=== PATIENT | female | born 1960 | race Caucasian/White ===

== ENCOUNTER 2018-01-18 11:35 | Observation (INO) | payer BC ==
[2018-01-18] MEDS ORDERED: Promethazine 6.25 MG in Sodium Chloride 0.9% 50 ML IV ONE ×2 (12:37→13:15)
--- NOTE | 2018-01-18 12:44 | EDM.PDOC ---
ED HPI GENERAL MEDICAL PROBLEM - General Chief Complaint: Gastrointestinal Problem Stated Complaint: CAN'T KEEP ANYTHING DOWN/NO WATER (SURG PT) Time Seen by Provider: 01/18/18 12:25 Source of Information: Reports: Patient, Family History Limitations: Reports: No Limitations - History of Present Illness INITIAL COMMENTS - FREE TEXT/NARRATIVE: 57-year-old female status post Zahida-en-Y 2 years ago, also cholecystectomy presents with 7 weeks of recurring persistent nausea and emesis. She has had at least one ER visit for IV fluids and nausea control. She received some Phenergan from her primary doctor which helped and "kept her out of the emergency room" but she has had 2 or 3 exacerbations of the nausea and vomiting , and currently has not eaten or drank anything for "2 days". She tends to be sick for about 7 days in a row. She is having persistent pain in the left upper quadrant of the abdomen, no radiation. No fevers or chills, no shortness of breath or cough, no "flu symptoms". No abdominal distention, no peritoneal irritation. Onset: Unknown/Unsure Duration: Week(s): (Intermittently for several weeks) Location: Reports: Abdomen Severity: Moderate Worsens with: Reports: Eating Associated Symptoms: Reports: Loss of Appetite, Malaise, Nausea/Vomiting, Weakness. Denies: Chest Pain, Cough, Fever/Chills, Headaches Left Upper Abdominal Pain Score (Numeric/FACES): 3 - Related Data Allergies Allergy/AdvReac Type Severity Reaction Status Date / Time amoxicillin trihydrate Allergy Cannot Verified 10/24/15 06:03 [From Augmentin] Remember butorphanol [From Stadol] Allergy Tachycardia Verified 01/18/18 16:38 erythromycin base Allergy Cannot Verified 10/24/15 06:03 Remember hydromorphone Allergy Cannot Verified 10/24/15 06:03 Remember hydromorphone HCl Allergy Cannot Verified 10/24/15 06:03 [From Dilaudid] Remember potassium clavulanate Allergy Cannot Verified 10/24/15 06:03 [From Augmentin] Remember sumatriptan Allergy Cannot Verified 10/24/15 06:03 Remember topiramate [From Topamax] Allergy Cannot Verified 10/24/15 06:03 Remember Home Meds: Home Meds Cholecalciferol (Vitamin D3) [Vitamin D3] 5,000 unit PO DAILY 01/29/15 [History] Estradiol [Climara] 0.05 mg TRDERM WEEKLY 01/29/15 [History] Gabapentin [Neurontin] 300 mg PO BID 01/29/15 [History] Levothyroxine [Synthroid] 100 mcg PO DAILY 01/29/15 [History] Pregabalin [Lyrica] 100 mg PO BEDTIME 01/29/15 [History] cycloSPORINE [Restasis] 1 drop EYEBOTH BID 01/29/15 [History] Escitalopram [Lexapro] 20 mg PO DAILY 01/31/15 [History] Acetaminophen/HYDROcodone [[place] 325-5 MG] 1 - 2 tab PO Q4H PRN #50 tablet 10/25 [Rx] Baclofen [Baclofen] 10 mg PO TID PRN 01/18/18 [History] Past Medical History [employer] History: Reports: Neurological History: Reports: Migraines Psychiatric History: Reports: Depression Endocrine/Metabolic History: Reports: Hypoparathyroidism - Infectious Disease History Infectious Disease History: Reports: Chicken Pox, Measles - Past Surgical History GI Surgical History: Reports: Bariatric Procedure, Cholecystectomy, Hernia Repair/Other Female Surgical History: Reports: Hysterectomy Musculoskeletal Surgical History: Reports: Knee Replacement, Other (See Below) Social & Family History - Tobacco Use Smoking Status *Q: Never Smoker Second Hand Smoke Exposure: No - Caffeine Use Caffeine Use: Reports: Coffee - Alcohol Use Days Per Week of Alcohol Use: 0 - Recreational Drug Use Recreational Drug Use: No ED ROS GENERAL - Review of Systems Review Of Systems: See Below Constitutional: Reports: Malaise, Weakness. Denies: Fever, Chills HEENT: Reports: No Symptoms Respiratory: Denies: Shortness of Breath, Cough Cardiovascular: Denies: Chest Pain Endocrine: Reports: Fatigue GI/Abdominal: Reports: Abdominal Pain, Decreased Appetite, Nausea, Vomiting. Denies: Black Stool, Bloody Stool, Difficulty Swallowing : Reports: No Symptoms Skin: Reports: No Symptoms Neurological: Reports: Weakness. Denies: Confusion, Headache, Difficulty Walking Psychiatric: Reports: No Symptoms ED EXAM, GI/ABD - Physical Exam Exam: See Below Exam Limited By: No Limitations General Appearance: Alert, No Apparent Distress Eyes: Bilateral: Normal Appearance (Normal hydration) Throat/Mouth: Normal Inspection (Normal hydration) Head: Atraumatic Neck: Supple Respiratory/Chest: No Respiratory Distress, Lungs Clear Cardiovascular: Regular Rate, Rhythm, No Murmur GI/Abdominal Exam: Soft, Tender (Some tenderness to the left upper quadrant generally but no guarding or rebound tenderness is present) Extremities: Normal Inspection. No: Pedal Edema Neurological: Alert, Oriented Psychiatric: Flat Affect Skin Exam: Warm, Dry Course - Vital Signs Last Recorded V/S: Last Vital Signs Temp 97.2 F 01/18/18 16:00 Pulse 68 01/18/18 16:00 Resp 16 01/18/18 16:00 BP 124/72 01/18/18 16:00 Pulse Ox 99 01/18/18 16:00 - Orders/Labs/Meds Orders: Active Orders 24 hr Category Date Time Status Iopamidol [Isovue-300 (61%)] Med 01/18/18 13:21 Active 100 ml IV . DIRECTED PRN Sodium Chloride 0.9% [Normal Saline] 100 ml Med 01/18/18 13:30 Active IV ASDIRECTED Medication Orders Acetaminophen (Tylenol) 650 mg PO Q6H PRN PRN Reason: Pain/Fever Last Admin: 01/18/18 16:58 Dose: 650 mg Baclofen (Lioresal) 10 mg PO TID PRN PRN Reason: Pain Cyclosporine (Restasis) 1 each EYEBOTH BID [facility] Escitalopram Oxalate (Lexapro) 20 mg PO DAILY [facility] Gabapentin (Neurontin) 300 mg PO BID [facility] Glycopyrrolate (Glycopyrrolate) 0.4 mg IVPUSH ONETIME ONE Stop: 01/19/18 07:31 Sodium Chloride (Normal Saline) 100 mls @ 3 mls/sec IV ASDIRECTED FLOR Stop: 01/18/18 23:00 Last Admin: 01/18/18 13:41 Dose: 3 mls/sec Dextrose/Lactated Ringer's (Dextrose 5%-Lactated Ringers) 1,000 mls @ 125 mls/ hr IV ASDIRECTED [facility] Multivitamins/Minerals 10 ml/Thiamine HCl 100 mg/ Magnesium Sulfate 2 gm/ Folic Acid 1 mg / Lactated Ringer's 1,015.2 mls @ 501.058 mls/hr IV ONETIME ONE Stop: 01/18/18 19:01 Last Admin: 01/18/18 16:59 Dose: 501.058 mls/hr Iopamidol (Isovue-300 (61%)) 100 ml IV . DIRECTED PRN PRN Reason: RADIOLOGY EXAM Stop: 01/19/18 13:22 Last Admin: 01/18/18 13:41 Dose: 100 ml Levothyroxine Sodium (Synthroid) 100 mcg PO ACBREAKFAST FLOR Ondansetron HCl (Zofran) 4 mg IVPUSH Q6H PRN PRN Reason: Nausea/Vomiting Ondansetron HCl (Zofran Odt) 4 mg PO Q4H PRN PRN Reason: Nausea/Vomiting Pantoprazole Sodium (Protonix Iv) 40 mg IVPUSH DAILY FLOR Climara 0.05mg Patch ((Ptom)) 1 each TOP Q7D FLOR Pregabalin (Lyrica) 100 mg PO BEDTIME FLOR Sodium Chloride (Saline Flush) 10 ml FLUSH ASDIRECTED PRN PRN Reason: Keep Vein Open Labs: Laboratory Tests 01/18/18 01/18/18 Range/Units 12:43 12:43 WBC 5.5 (4.5-11.0) K/uL RBC 4.66 (3.30-5.50) M/uL Hgb 14.7 (12.0-15.0) g/dL Hct 43.6 (36.0-48.0) % MCV 94 (80-98) fL MCH 32 H (27-31) pg MCHC 34 (32-36) % Plt Count 168 (150-400) K/uL Neut % (Auto) 84 H (36-66) % Lymph % (Auto) 9 L (24-44) % [place] % (Auto) 7 H (2-6) % Eos % (Auto) 1 L (2-4) % Baso % (Auto) 0 (0-1) % Sodium 144 (140-148) mmol/L Potassium 3.8 (3.6-5.2) mmol/L Chloride 106 (100-108) mmol/L Carbon Dioxide 24 (21-32) mmol/L Anion Gap 14.4 H (5.0-14.0) mmol/L BUN 8 (7-18) mg/dL Creatinine 0.7 (0.6-1.0) mg/dL Est Cr Clr Drug Dosing 78.83 mL/min Estimated GFR (MDRD) > 60 (>60) Glucose 108 H (74-106) mg/dL Calcium 8.6 (8.5-10.1) mg/dL Total Bilirubin 0.7 D (0.2-1.0) mg/dL AST 21 (15-37) U/L ALT 27 (12-78) U/L Alkaline Phosphatase 119 H (46-116) U/L Total Protein 6.7 (6.4-8.2) g/dL Albumin 3.7 (3.4-5.0) g/dL Globulin 3.0 (2.3-3.5) g/dL Albumin/Globulin Ratio 1.2 (1.2-2.2) Amylase 72 (25-115) U/L Lipase 71 L (73-393) U/L Meds: Medications Generic Name Dose Route Start Last Admin Trade Name Freq PRN Reason Stop Dose Admin Acetaminophen 650 mg 01/18/18 15:41 01/18/18 16:58 Tylenol PO 650 mg Q6H PRN Administration Pain/Fever Baclofen 10 mg 01/18/18 15:49 Lioresal PO TID PRN Pain Cyclosporine 1 each 01/18/18 21:00 Restasis EYEBOTH BID [facility] Escitalopram Oxalate 20 mg 01/19/18 09:00 Lexapro PO DAILY [facility] Gabapentin 300 mg 01/18/18 21:00 Neurontin PO BID [facility] Glycopyrrolate 0.4 mg 01/19/18 07:30 Glycopyrrolate IVPUSH 01/19/18 07:31 ONETIME ONE Sodium Chloride 100 mls @ 3 mls/sec 01/18/18 13:30 01/18/18 13:41 Normal Saline IV 01/18/18 23:00 3 mls/sec ASDIRECTED [facility] Administration Dextrose/Lactated Ringer's 1,000 mls @ 125 mls/hr 01/18/18 15:45 Dextrose 5%-Lactated Ringers IV ASDIRECTED [facility] Multivitamins/Minerals 10 ml/ 1,015.2 mls @ 501.058 mls/hr 01/18/18 17:00 16:59 Thiamine HCl 100 mg/ Magnesium IV 01/18/18 19:01 501.058 mls/hr Sulfate 2 gm/ Folic Acid 1 mg ONETIME ONE Administration / Lactated Ringer's Iopamidol 100 ml 01/18/18 13:21 01/18/18 13:41 Isovue-300 (61%) IV 01/19/18 13:22 100 ml . DIRECTED PRN Administration RADIOLOGY EXAM Levothyroxine Sodium 100 mcg 01/19/18 07:30 Synthroid PO ACBREAKFAST FLOR Ondansetron HCl 4 mg 01/18/18 15:41 Zofran IVPUSH Q6H PRN Nausea/Vomiting Ondansetron HCl 4 mg 01/18/18 15:41 Zofran Odt PO Q4H PRN Nausea/Vomiting Pantoprazole Sodium 40 mg 01/19/18 09:00 Protonix Iv IVPUSH DAILY FLOR Climara 0.05mg Patch 1 each 01/21/18 09:00 (Ptom) TOP Q7D FLOR Pregabalin 100 mg 01/18/18 21:00 Lyrica PO BEDTIME FLOR Sodium Chloride 10 ml 01/18/18 15:41 Saline Flush FLUSH ASDIRECTED PRN Keep Vein Open Discontinued Medications Generic Name Dose Route Start Last Admin Trade Name Freq PRN Reason Stop Dose Admin Promethazine HCl 6.25 mg/ 50.25 mls @ 200 mls/hr 01/18/18 12:37 01/18/18 13: 14 Sodium Chloride IV 01/18/18 12:52 Not Given ONETIME ONE Sodium Chloride 1,000 mls @ 500 mls/hr 01/18/18 12:45 01/18/18 13:03 Normal Saline IV 01/18/18 15:30 500 mls/hr ASDIRECTED FLOR Administration Promethazine HCl 6.25 mg/ 50.25 mls @ 200 mls/hr 01/18/18 13:15 01/18/18 13: 12 Sodium Chloride IV 01/18/18 13:30 200 mls/hr ONETIME ONE Administration - Re-Assessments/Exams Free Text/Narrative Re-Assessment/Exam: 01/18/18 12:43 Patient will be hydrated with normal saline, given 6.25 mg of IV Phenergan and CBC, CMP, amylase, lipase will be obtained. Eventually we may have to CT the abdomen and pelvis. 01/18/18 17:47 CT and labs negative. Admit to surgery by Luisa Posadas for Dr. Peres. Departure - Departure Time of Disposition: 15:53 Disposition: Admitted As Inpatient 65 Condition: Fair Clinical Impression: Abdominal pain, Vomiting - Discharge Information - My Orders Last 24 Hours: My Active Orders 01/18/18 13:21 Iopamidol [Isovue-300 (61%)] 100 ml IV . DIRECTED PRN 01/18/18 13:30 Sodium Chloride 0.9% [Normal Saline] 100 ml IV ASDIRECTED - Assessment/Plan Last 24 Hours: My Active Orders 01/18/18 13:21 Iopamidol [Isovue-300 (61%)] 100 ml IV . DIRECTED PRN 01/18/18 13:30 Sodium Chloride 0.9% [Normal Saline] 100 ml IV ASDIRECTED
[2018-01-18] MEDS ORDERED: Sodium Chloride 0.9% 1,000 ML IV SCH (12:45)
[2018-01-18] MEDS ORDERED: Iopamidol 612 MG/ML 100 ML Bottle IV PRN (13:21)
[2018-01-18] MEDS ORDERED: Sodium Chloride 0.9% 100 ML IV SCH (13:30)
--- NOTE | 2018-01-18 14:03 | CT ---
Abdomen Pelvis w Cont HISTORY: Abdominal pain, vomiting. Dose: Total DLP 729. COMPARISON: Plain films 02/01/2015. FINDINGS: Prior cholecystectomy. Liver is mildly enlarged measuring 19 cm craniocaudal. No focal live r lesions seen. The spleen, pancreas, adrenal glands and abdominal aorta appear normal. Kidneys unrem arkable. Prior gastric bypass procedure. No obstruction. No focal fluid collection or abscess. There is corksc rew appearance of the mesenteric vasculature in the left abdomen with three quarters turn however the re is no evidence for obstruction. This may be a transient finding. No adenopathy. Epidural catheter that is partially visualized. The remainder the pelvis is unremarkable. Impression: 1. No acute findings for pain. Prior gastric bypass present.
[2018-01-18] MEDS ORDERED: Sodium Chloride 0.9% 10 ML Syringe FLUSH PRN (15:41)
[2018-01-18] MEDS ORDERED: Ondansetron 4 MG Tab.DIS PO PRN (15:41)
[2018-01-18] MEDS ORDERED: Baclofen 10 MG Tab PO PRN (15:49)
[2018-01-18] MEDS ORDERED: ESTRADIOL 0.05 MG TRDERM SCH (16:00)
--- NOTE | 2018-01-18 16:12 | PCM.HP ---
H&P History of Present Illness - General Date of Service: 01/18/18 Admit Problem/Dx: Admission Diagnosis/Problem Admission Diagnosis/Problem Abdominal pain Source of Information: Patient History Limitations: Reports: No Limitations - History of Present Illness Initial Comments - Free Text/Narative: Christine states that she has had a 7 week history with 3 episodes of extreme nausea, vomiting and dry heaves which can occur randomly without relationship to anything. She states she can be just sitting and having a good time and she will get nauseated, throw up until her pouch is empty then get dry heaves. Denies abdominal pain but after she is done throwing up and dry heaving her left upper abdominal quadrant will feel bruised. Associated with diarrhea. Weight has been stable This is the second time she went to ED. All tests and CT Scans have been negative. This last episode started on 01/16/18mand she states she has had less than 5 oz of water since then. Onset of Symptoms: Reports: Gradual Improves with: Reports: Medication Worsens with: Reports: None Context: Reports: Sick Contact Left Upper Abdominal Pain Score (Numeric/FACES): 3 - Related Data Allergies/Adverse Reactions: Allergies Allergy/AdvReac Type Severity Reaction Status Date / Time amoxicillin trihydrate Allergy Cannot Verified 10/24/15 06:03 [From Augmentin] Remember erythromycin base Allergy Cannot Verified 10/24/15 06:03 Remember hydromorphone Allergy Cannot Verified 10/24/15 06:03 Remember hydromorphone HCl Allergy Cannot Verified 10/24/15 06:03 [From Dilaudid] Remember potassium clavulanate Allergy Cannot Verified 10/24/15 06:03 [From Augmentin] Remember sumatriptan Allergy Cannot Verified 10/24/15 06:03 Remember topiramate [From Topamax] Allergy Cannot Verified 10/24/15 06:03 Remember Home Medications: Home Meds Cholecalciferol (Vitamin D3) [Vitamin D3] 5,000 unit PO DAILY 01/29/15 [History] Estradiol [Climara] 0.05 mg TRDERM WEEKLY 01/29/15 [History] Gabapentin [Neurontin] 300 mg PO BID 01/29/15 [History] Levothyroxine [Synthroid] 100 mcg PO DAILY 01/29/15 [History] Pregabalin [Lyrica] 100 mg PO BEDTIME 01/29/15 [History] cycloSPORINE [Restasis] 1 drop EYEBOTH BID 01/29/15 [History] Escitalopram [Lexapro] 20 mg PO DAILY 01/31/15 [History] Acetaminophen/HYDROcodone [[place] 325-5 MG] 1 - 2 tab PO Q4H PRN #50 tablet 10/25 [Rx] Baclofen [Baclofen] 10 mg PO TID PRN 01/18/18 [History] Past Medical History [employer] History: Reports: Neurological History: Reports: Migraines Psychiatric History: Reports: Depression Endocrine/Metabolic History: Reports: Hypoparathyroidism - Infectious Disease History Infectious Disease History: Reports: Chicken Pox, Measles - Past Surgical History GI Surgical History: Reports: Bariatric Procedure, Cholecystectomy, Hernia Repair/Other Female Surgical History: Reports: Hysterectomy Musculoskeletal Surgical History: Reports: Knee Replacement Social & Family History - Tobacco Use Smoking Status *Q: Never Smoker Second Hand Smoke Exposure: No - Caffeine Use Caffeine Use: Reports: Coffee - Alcohol Use Days Per Week of Alcohol Use: 0 - Recreational Drug Use Recreational Drug Use: No H&P Review of Systems - Review of Systems: Review Of Systems: See Below General: Reports: Weakness, Fatigue HEENT: Reports: No Symptoms Pulmonary: Reports: No Symptoms Cardiovascular: Reports: No Symptoms Gastrointestinal: Reports: Abdominal Pain, Nausea, Vomiting Genitourinary: Reports: No Symptoms Musculoskeletal: Reports: Muscle Pain (fibromyalgia) Skin: Reports: No Symptoms Psychiatric: Reports: No Symptoms Neurological: Reports: No Symptoms Hematologic/Lymphatic: Reports: No Symptoms Immunologic: Reports: No Symptoms Exam - Exam Exam: See Below - Vital Signs Vital Signs: Last Vital Signs Temp 97.2 F 01/18/18 12:14 Pulse 72 01/18/18 14:06 Resp 16 01/18/18 14:06 BP 111/66 01/18/18 14:06 Pulse Ox 97 01/18/18 14:06 Weight: 148 lb 2.41 oz - Exam Quality Assessment: DVT Prophylaxis General: Alert, Oriented, Cooperative HEENT: PERRLA Neck: Supple, Trachea Midline Lungs: Clear to Auscultation, Normal Respiratory Effort Cardiovascular: Regular Rate, Regular Rhythm GI/Abdominal Exam: Soft, Non-Tender (Female) Exam: Deferred Rectal (Female) Exam: Deferred Back Exam: Normal Inspection, Full Range of Motion Extremities: Normal Inspection, Normal Range of Motion Skin: Warm, Dry, Intact Neurological: Cranial Nerves Intact, Reflexes Equal Bilateral Neuro Extensive - Mental Status: Alert, Oriented x3, Normal Mood/Affect Neuro Extensive - Motor, Sensory, Reflexes: CN II-XII Intact Psychiatric: Alert, Normal Affect, Normal Mood - Patient Data Result Diagrams: 01/18/18 12:43 01/18/18 12:43 *Q Meaningful Use (ADM) - VTE *Q VTE Criteria *Q: - Stroke *Q Stroke Criteria *Q: - AMI *Q AMI Criteria *Q: - Problem List (1) Nausea and vomiting SNOMED Code(s): 61105566 ICD Code: R11.2 - NAUSEA WITH VOMITING, UNSPECIFIED Status: Acute Current Visit: Yes Problem List Initiated/Reviewed/Updated: Yes Orders Last 24hrs: Active Orders 24 hr Category Date Time Status Activity as Tolerated [RC] .Routine Care 01/18/18 15:41 Active Ambulate [RC] QID Care 01/18/18 15:41 Active Height and Weight [RC] UPON Care 01/18/18 15:41 Active Intake and Output Strict [RC] QSHIFT Care 01/18/18 15:42 Active May Shower [RC] ASDIRECTED Care 01/18/18 15:41 Active Peripheral IV Care [RC] . DIRECTED Care 01/18/18 15:48 Active Up to Chair [RC] QID Care 01/18/18 15:41 Active Verify Patient Consent Obtain [RC] ASDIRECTED Care 01/19/18 07:30 Active Vital Signs [RC] Q4H Care 01/18/18 15:41 Active Bariatric Diet [DIET] Diet 01/18/18 Dinner Active Nothing per Oral After Midnight Diet [DIET] Diet 01/18/18 Dinner Active CBC WITH AUTO DIFF [HEME] AM Lab 01/19/18 05:11 Ordered COMPREHENSIVE METABOLIC PN,CMP [CHEM] AM Lab 01/19/18 05:11 Ordered FERRITIN [CHEM] AM Lab 01/19/18 05:11 Ordered FOLIC ACID [CHEM] AM Lab 01/19/18 05:11 Ordered MAGNESIUM [CHEM] AM Lab 01/19/18 05:11 Ordered PHOSPHORUS [CHEM] AM Lab 01/19/18 05:11 Ordered VITAMIN B12 [CHEM] AM Lab 01/19/18 05:11 Ordered VITAMIN D,25-HYDROXY [CHEM] AM Lab 01/19/18 05:11 Ordered Acetaminophen [Tylenol] Med 01/18/18 15:41 Active 650 mg PO Q6H PRN Baclofen [Lioresal] Med 01/18/18 15:49 Active 10 mg PO TID PRN Dextrose 5%-Lactated Ringers 1,000 ml Med 01/18/18 15:45 Active IV ASDIRECTED Escitalopram [Lexapro] Med 01/19/18 09:00 Active 20 mg PO DAILY Estradiol [Climara] Med 01/18/18 16:00 Ordered 0.05 mg TRDERM WEEKLY Gabapentin [Neurontin] Med 01/18/18 21:00 Ordered 300 mg PO BID Glycopyrrolate Med 01/19/18 07:30 Once 0.4 mg IVPUSH ONETIME ONE Levothyroxine [Synthroid] Med 01/19/18 09:00 Ordered 100 mcg PO DAILY MVI, Adult with Vitamin K [Infuvite Adult] 10 ml Med 01/18/18 15:41 Ordered Thiamine [Vitamin B-1] 200 mg Chromium/Copper/Az/Selen/Zn [Multitrace-5 Concentrate ] 1 ml Lactated Ringers [Ringers, Lactated] 1,000 ml IV ONETIME Ondansetron [Zofran ODT] Med 01/18/18 15:41 Ordered 4 mg PO Q4H PRN Ondansetron [Zofran] Med 01/18/18 15:41 Ordered 4 mg IVPUSH Q6H PRN Pantoprazole [ProTONIX IV] Med 01/19/18 09:00 Ordered 40 mg IVPUSH DAILY Pregabalin [Lyrica] Med 01/18/18 21:00 Ordered 100 mg PO BEDTIME Sodium Chloride 0.9% [Saline Flush] Med 01/18/18 15:41 Ordered 10 ml FLUSH ASDIRECTED PRN cycloSPORINE [Restasis] Med 01/18/18 21:00 Ordered DOSE each EYEBOTH BID Peripheral IV Insertion Adult [OM.PC] Routine Oth 01/18/18 15:41 Ordered Sequential Compression Device [OM.PC] Routine Oth 01/18/18 15:41 Ordered Resuscitation Status Routine Resus Stat 01/18/18 15:41 Ordered Medication Orders Acetaminophen (Tylenol) 650 mg PO Q6H PRN PRN Reason: Pain/Fever Baclofen (Lioresal) 10 mg PO TID PRN PRN Reason: Pain Cyclosporine (Restasis) each EYEBOTH BID [facility] Escitalopram Oxalate (Lexapro) 20 mg PO DAILY FLOR Gabapentin (Neurontin) 300 mg PO BID [facility] Glycopyrrolate (Glycopyrrolate) 0.4 mg IVPUSH ONETIME ONE Stop: 01/19/18 07:31 Sodium Chloride (Normal Saline) 100 mls @ 3 mls/sec IV ASDIRECTED FLOR Stop: 01/18/18 23:00 Last Admin: 01/18/18 13:41 Dose: 3 mls/sec Dextrose/Lactated Ringer's (Dextrose 5%-Lactated Ringers) 1,000 mls @ 125 mls/ hr IV ASDIRECTED [facility] Multivitamins/Minerals 10 ml/Thiamine HCl 200 mg/ Chromium/Copper/Manganese/ Seleni/Zn 1 ml/ Lactated Ringer's 1,013 mls @ 500 mls/hr IV ONETIME ONE Stop: 01/18/18 17:42 Iopamidol (Isovue-300 (61%)) 100 ml IV . DIRECTED PRN PRN Reason: RADIOLOGY EXAM Stop: 01/19/18 13:22 Last Admin: 01/18/18 13:41 Dose: 100 ml Levothyroxine Sodium (Synthroid) 100 mcg PO DAILY [facility] Non-Formulary Medication (Estradiol [Climara]) 0.05 mg TRDERM WEEKLY [facility] Ondansetron HCl (Zofran) 4 mg IVPUSH Q6H PRN PRN Reason: Nausea/Vomiting Ondansetron HCl (Zofran Odt) 4 mg PO Q4H PRN PRN Reason: Nausea/Vomiting Pantoprazole Sodium (Protonix Iv) 40 mg IVPUSH DAILY [facility] Pregabalin (Lyrica) 100 mg PO BEDTIME FLOR Sodium Chloride (Saline Flush) 10 ml FLUSH ASDIRECTED PRN PRN Reason: Keep Vein Open Assessment: Admit to Observation Plan to Hydrate EGD with Possible Dilation Scheduled in AM with Aneesh Moreland MD See Copy of orders Will evaluate prn or in AM Luisa Foy
[2018-01-18] MEDS: Acetaminophen 325 MG Tab PO PRN (16:58)
[2018-01-18] MEDS ORDERED: MVI, Adult with Vitamin K 10 ML, Thiamine 100 MG, Magnesium Sulfate 2 GM, Folic Acid 1 ... IV ONE ×5 (17:00)
[2018-01-18] MEDS: Dextrose 5%-Lactated Ringers 1,000 ML IV SCH (19:04)
[2018-01-18] MEDS ORDERED: Pregabalin 100 MG Cap PO SCH (21:00)
[2018-01-18] MEDS: cycloSPORINE Ophth Drops U/D Box of 30 EYEBOTH SCH (21:21)
[2018-01-18] MEDS: Gabapentin 300 MG Cap PO SCH (21:22)
[2018-01-18] MEDS: Ondansetron 4 MG/2 ML SDV IVPUSH PRN (22:00)
[2018-01-19] MEDS: Acetaminophen 325 MG Tab PO PRN ×2 (01:30→15:40)
[2018-01-19] MEDS: Dextrose 5%-Lactated Ringers 1,000 ML IV SCH ×2 (02:54→09:49)
[2018-01-19] MEDS: Ondansetron 4 MG/2 ML SDV IVPUSH PRN ×3 (05:47→16:14)
[2018-01-19] MEDS ORDERED: fentaNYL 100 MCG/2 ML SDV ONE (07:25)
[2018-01-19] MEDS ORDERED: Propofol 200 MG/20 ML SDV ONE (07:25)
[2018-01-19] MEDS ORDERED: Midazolam 1 MG/ML 2 ML SDV ONE (07:25)
[2018-01-19] MEDS ORDERED: Glycopyrrolate 0.2 MG/ML 2 ML SDV IVPUSH ONE (07:30)
[2018-01-19] MEDS ORDERED: Levothyroxine 100 MCG Tab PO SCH (07:30)
[2018-01-19] MEDS ORDERED: Escitalopram 20 MG Tab PO SCH (09:00)
[2018-01-19] MEDS ORDERED: Pantoprazole 40 MG Vial IVPUSH SCH (09:00)
[2018-01-19] MEDS: cycloSPORINE Ophth Drops U/D Box of 30 EYEBOTH SCH (10:45)
[2018-01-19 11:01] VITALS: BP 126/76
--- NOTE | 2018-01-19 11:19 | PN ---
DATE OF SERVICE: 01/19/2018 SUBJECTIVE: She was admitted yesterday. She has had 2 episodes of nausea, and received 2 doses of Zofran. No further diarrhea. She does report a mild headache. States she takes Aleve for her headaches. Discussion regarding that Aleve is an NSAID and should not be taken after Zahida-en-Y gastric bypass surgery. REVIEW OF SYSTEMS: GENERAL: No fever, chills, night sweats, or fatigue. NECK: Negative. CHEST: No chest pain or shortness of breath. LUNGS: No cough. ABDOMEN: No nausea, vomiting, diarrhea, or constipation. No red or black stools. EXTREMITIES: Has fibromyalgia, but is not having any acute pain at this time. NEUROLOGIC: Mild headache as stated. SKIN: Without rash. PSYCHIATRIC: Denies any depression, anxiety, or insomnia. Remainder of the review of systems is negative for any pertinent positives or negatives. OBJECTIVE: GENERAL: Christine Prescott is a 57-year-old female. VITAL SIGNS: Height is 5 feet 4.96 inches. Weight is 148 pounds. TPR 96.1, 68, 16. Blood pressure 122/74. HEENT: Negative. NECK: Supple. HEART: Regular rate and rhythm. LUNGS: Clear. ABDOMEN: Soft and nontender. EXTREMITIES: Without peripheral edema. NEUROLOGIC: Intact. PSYCHIATRIC: Mood and affect appropriate. ASSESSMENT: 1. Nausea and vomiting. 2. Use of nonsteroidal anti-inflammatory drugs after Zahida-en-Y gastric bypass surgery. 3. Dehydration. 4. Status post Zahida-en-Y gastric bypass surgery. 5. Unspecified surgical malabsorption. 6. B12 deficiency. PLAN: EGD with dilatation and possible biopsies scheduled with Aneesh Schaeffer MD this a.m. Discharge pending results of EGD. Luisa Posadas PA-C /[id number]
[2018-01-19] MEDS: Gabapentin 300 MG Cap PO SCH (12:46)
--- NOTE | 2018-01-19 13:01 | OR ---
DATE OF PROCEDURE: 01/19/2018 PREOPERATIVE DIAGNOSIS: Vomiting. POSTOPERATIVE DIAGNOSIS: Vomiting, etiology unknown. PROCEDURES: Esophagogastrojejunoscopy with biopsies of esophagus, stomach, and jejunum for CLOtest and for pathology to look for Helicobacter pylori. SURGEON: Aneesh Schaeffer MD ANESTHESIA: IV anesthesia with monitored anesthesia care. INDICATION: This is a 57-year-old white female who, about 3 years ago, underwent a Zahida-en- Y gastric bypass for morbid obesity. She subsequently, about 6 months later, had a cholecystectomy. She now complains of intermittent episodes, over 6 weeks, of vomiting. She says she vomits for a few days and then is fine, and then it recurs. A request was made for upper endoscopy to include biopsies for CLOtest and for pathology to look for Helicobacter pylori. I counseled her for this, including risks and alternatives, and she gave her informed consent to proceed. DESCRIPTION OF PROCEDURE: The patient was placed in the left lateral decubitus position. IV anesthesia was administered by the Anesthesia Service. Fluoroscopy was available. Time- out was held. The flexible video Olympus upper endoscope was passed through her mouth, down her esophagus, and into her stomach remnant. The anastomosis into the jejunum was noted to be widely patent. We easily passed the scope through the anastomosis, down into both afferent and efferent limbs. Everything looked fine. There was no inflammation present. We did obtain biopsies for CLOtest and for pathology to look for Helicobacter pylori of the gastric remnant, jejunum, and esophagus. The scope was then removed. She tolerated the procedure well. Aneesh Schaeffer MD /[id number] [facility]
--- NOTE | 2018-01-20 07:49 | PCM.DCSUM1 ---
Discharge Summary - Hospital Course Free Text/Narrative:: Christine is a pleasant 57 year old female who is post RNY Gastric Bypass several years ago. She has had 3 episodes of nausea, vomiting until dry heaves for 12 hours. Diarrhea accompanies the nausea and vomiting. She has had 2 work ups at 2 different EDs which were negative. Nausea and vomiting is random no relationship to food or drink. After a negative work up in ED she was admitted for Observation and an EGD with biopsies on 01/19/18 was done by Aneesh Schaeffer MD. Christine elected to be discharged and declined further testing after EGD. She had 2 episodes of nausea while in the hospital. Ate very little and was able to drink enough fluids. Had no bowel movements - Discharge Data Discharge Date: 01/19/18 Discharge Disposition: Home, Self-Care 01 Condition: Stable - Discharge Diagnosis/Problem(s) (1) Nausea and vomiting SNOMED Code(s): 14441268 ICD Code: R11.2 - NAUSEA WITH VOMITING, UNSPECIFIED Status: Acute Qualifiers: Vomiting type: cyclical vomiting Vomiting Intractability: intractable Qualified Code(s): G43.A1 - Cyclical vomiting, intractable - Patient Instructions Diet: Usual Diet as Tolerated, Drink 8-10+ Glasses/Day Activity: As Tolerated Driving: Do Not Drive Showering/Bathing: May Shower Notify Provider of: Nausea and/or Vomiting - Discharge Plan Prescriptions/Med Rec: Ondansetron [Zofran ODT] 4 mg PO Q4H PRN #30 tab.dis PRN Reason: Nausea/Vomiting Home Medications: Home Meds Cholecalciferol (Vitamin D3) [Vitamin D3] 5,000 unit PO DAILY 01/29/15 [History] Estradiol [Climara] 0.05 mg TRDERM WEEKLY 01/29/15 [History] Gabapentin [Neurontin] 300 mg PO BID 01/29/15 [History] Levothyroxine [Synthroid] 100 mcg PO DAILY 01/29/15 [History] Pregabalin [Lyrica] 100 mg PO BEDTIME 01/29/15 [History] cycloSPORINE [Restasis] 1 drop EYEBOTH BID 01/29/15 [History] Escitalopram [Lexapro] 20 mg PO DAILY 01/31/15 [History] Acetaminophen/HYDROcodone [Lisle 325-5 MG] 1 - 2 tab PO Q4H PRN #50 tablet 10/25 [Rx] Baclofen 10 mg PO TID PRN 01/18/18 [History] Ondansetron [Zofran ODT] 4 mg PO Q4H PRN #30 tab.dis 01/19/18 [Rx] Referrals: Luisa Posadas PA-C [[facility]] - 01/25/18 (At already scheduled time at [place], [place]) - Discharge Summary/Plan Comment DC Time >30 min.: Yes Discharge Summary/Plan Comment: Christine will be discharged to home with Zofran for nausea An UGI with Small Bowel Follow through will be ordered through in [place], [place] Encouraged patient to stay in the hospital and have this done in the morning but she declined. EGD was negative - Yvonne Test pending. Discussed stopping all NSAIDs and Oxycodone for fibromyalgia Follow up with Luisa Foy on 01/25/18 at [place], [place] Luisa Foy - General Info Date of Service: 01/19/18 Functional Status: Reports: Tolerating Diet, Ambulating - Review of Systems General: Reports: Weakness, Fatigue HEENT: Reports: Headaches (mild) Pulmonary: Reports: No Symptoms Cardiovascular: Reports: No Symptoms Gastrointestinal: Reports: No Symptoms Genitourinary: Reports: No Symptoms Musculoskeletal: Reports: Other (chronic back pain and has fibromyalgia but " not bad today") Skin: Reports: No Symptoms Neurological: Reports: No Symptoms Psychiatric: Reports: No Symptoms - Patient Data Vitals - Most Recent: Last Vital Signs Temp 96.8 F 01/19/18 15:00 Pulse 64 01/19/18 11:00 Resp 14 01/19/18 15:00 BP 126/76 01/19/18 11:00 Pulse Ox 98 01/19/18 15:00 Weight - Most Recent: 148 lb 2.41 oz I&O - Last 24 hours: Intake & Output 01/19/18 01/20/18 01/20/18 22:59 06:59 14:59 Intake Total 1484 Output Total 350 Balance 1134 Lab Results - Last 24 hrs: Laboratory Results - last 24 hr 01/19/18 Range/Units 05:40 Vitamin D 25-Hydroxy 25.9 L (30-100) ng/mL Med Orders - Current: Current Medications Discontinued Medications Acetaminophen (Tylenol) 650 mg PO Q6H PRN PRN Reason: Pain/Fever Last Admin: 01/19/18 15:40 Dose: 650 mg Baclofen (Lioresal) 10 mg PO TID PRN PRN Reason: Pain Last Admin: 01/18/18 21:22 Dose: 10 mg Cyclosporine (Restasis) 1 each EYEBOTH BID [facility] Last Admin: 01/19/18 10:45 Dose: 1 drop Escitalopram Oxalate (Lexapro) 20 mg PO DAILY [facility] Last Admin: 01/19/18 12:45 Dose: 20 mg Fentanyl (Sublimaze) Confirm Administered Dose 100 mcg .ROUTE .STK-MED ONE Stop: 01/19/18 07:26 Gabapentin (Neurontin) 300 mg PO BID [facility] Last Admin: 01/19/18 12:46 Dose: Not Given Glycopyrrolate (Glycopyrrolate) 0.4 mg IVPUSH ONETIME ONE Stop: 01/19/18 07:31 Last Admin: 01/19/18 08:38 Dose: Not Given Promethazine HCl 6.25 mg/ (Sodium Chloride) 50.25 mls @ 200 mls/hr IV ONETIME ONE Stop: 01/18/18 12:52 Last Admin: 01/18/18 13:14 Dose: Not Given Sodium Chloride (Normal Saline) 1,000 mls @ 500 mls/hr IV ASDIRECTED [facility] Stop: 01/18/18 15:30 Last Admin: 01/18/18 13:03 Dose: 500 mls/hr Promethazine HCl 6.25 mg/ (Sodium Chloride) 50.25 mls @ 200 mls/hr IV ONETIME ONE Stop: 01/18/18 13:30 Last Admin: 01/18/18 13:12 Dose: 200 mls/hr Sodium Chloride (Normal Saline) 100 mls @ 3 mls/sec IV ASDIRECTED [facility] Stop: 01/18/18 23:00 Last Admin: 01/18/18 13:41 Dose: 3 mls/sec Dextrose/Lactated Ringer's (Dextrose 5%-Lactated Ringers) 1,000 mls @ 125 mls/ hr IV ASDIRECTED [facility] Last Admin: 01/19/18 09:49 Dose: 125 mls/hr Multivitamins/Minerals 10 ml/Thiamine HCl 100 mg/ Magnesium Sulfate 2 gm/ Folic Acid 1 mg / Lactated Ringer's 1,015.2 mls @ 501.058 mls/hr IV ONETIME ONE Stop: 01/18/18 19:01 Last Admin: 01/18/18 16:59 Dose: 501.058 mls/hr Iopamidol (Isovue-300 (61%)) 100 ml IV . DIRECTED PRN PRN Reason: RADIOLOGY EXAM Stop: 01/19/18 13:22 Last Admin: 01/18/18 13:41 Dose: 100 ml Levothyroxine Sodium (Synthroid) 100 mcg PO ACBREAKFAST [facility] Last Admin: 01/19/18 10:44 Dose: 100 mcg Midazolam HCl (Versed 1 Mg/Ml) Confirm Administered Dose 2 mg .ROUTE .STK-MED ONE Stop: 01/19/18 07:26 Ondansetron HCl (Zofran) 4 mg IVPUSH Q6H PRN PRN Reason: Nausea/Vomiting Last Admin: 01/19/18 16:14 Dose: 4 mg Ondansetron HCl (Zofran Odt) 4 mg PO Q4H PRN PRN Reason: Nausea/Vomiting Pantoprazole Sodium (Protonix Iv) 40 mg IVPUSH DAILY [facility] Last Admin: 01/19/18 10:51 Dose: 40 mg Climara 0.05mg Patch ((Ptom)) 1 each TOP Q7D FLOR Pregabalin (Lyrica) 100 mg PO BEDTIME [facility] Last Admin: 01/18/18 21:22 Dose: 100 mg Propofol (Diprivan 20 Ml) Confirm Administered Dose 200 mg .ROUTE .STK-MED ONE Stop: 01/19/18 07:26 Sodium Chloride (Saline Flush) 10 ml FLUSH ASDIRECTED PRN PRN Reason: Keep Vein Open - Exam Quality Assessment: Reports: DVT Prophylaxis General: Reports: Alert, Oriented, Cooperative HEENT: Reports: Pupils Equal, Pupils Reactive Neck: Reports: Supple Lungs: Reports: Clear to Auscultation, Normal Respiratory Effort Cardiovascular: Reports: Regular Rate, Regular Rhythm GI/Abdominal Exam: Soft, Non-Tender (Female) Exam: Deferred Rectal (Female) Exam: Deferred Back Exam: Reports: Normal Inspection, Full Range of Motion Extremities: Normal Inspection, Normal Range of Motion, No Pedal Edema Skin: Reports: Warm, Dry, Intact Neurological: Reports: No New Focal Deficit Psy/Mental Status: Reports: Alert, Labile Mood *Q Meaningful Use (DIS) - VTE *Q VTE Criteria *Q: - Stroke *Q Stroke Criteria *Q: - AMI *Q AMI Criteria *Q:
[2018-01-21] MEDS ORDERED: ESTRADIOL 0.05 MG TOP SCH (09:00)
== END 2018-01-19 16:55 | disposition home or self-care (01) ==
LOC: JP.ED 11:35 → JP.2SS 14:45
PROVIDERS: ADMIT Surgery; ATTEND Surgery
DX: G43.A1 Cyclical vomiting, in migraine, intractable (principal); F32.9 Major depressive disorder, single episode, unspecified; E66.01 Morbid (severe) obesity due to excess calories; E21.3 Hyperparathyroidism, unspecified; Z88.1 Allergy status to other antibiotic agents; Z88.8 Allergy status to other drugs, medicaments and biological substances; Z98.84 Bariatric surgery status; Z79.1 Long term (current) use of non-steroidal anti-inflammatories (NSAID)
CPT/HCPCS: 36415; 43239; 74177; 80053; 82150; 82306; 82607; 82728; 82746; 83690; 83735; 84100; 85025; 87081; 88305; 96361; 96365; 96366; 96367; 96375; 96376; 99285; A9270; C9113; G0378; J2250; J2405; J2550; J2704; J3010; J3411; J3475; J7030; J7040; J7042; J7050; J7120; Q9967; J3490